=== PATIENT | male | born 1990 | race Asian ===

== ENCOUNTER 2017-04-29 14:00 | Emergency (ER) | payer MEDICAID ==
[~2017-04-29] VITALS: Ht 177.8 cm; Wt 79.4 kg
--- NOTE | 2017-04-29 14:08 | NUR ---
MSE DONE BY DR TOVAR AT BEDSIDE ROOM 02B.
[2017-04-29] MEDS ORDERED: AMOXICILLIN-CLAVUL 500-125MG TABLET ONE (14:21)
[2017-04-29] MEDS ORDERED: TDAP DIPH,PERTUSS,TET VAC/PF 0.5 ML DISP.SYRIN IM ONE (14:21)
[2017-04-29] MEDS ORDERED: IBUPROFEN 600 MG TABLET ONE (14:21)
[2017-04-29] MEDS: IBUPROFEN 600 MG TABLET PO ONE (14:30)
[2017-04-29] MEDS: AMOXICILLIN-CLAVUL 500-125MG TABLET PO ONE (14:30)
[2017-04-29] MEDS: TDAP DIPH,PERTUSS,TET VAC/PF 0.5 ML DISP.SYRIN IM ONE (14:31)
[2017-04-29 14:42] VITALS: BP 131/78
--- NOTE | 2017-04-29 14:43 | NUR ---
Patient discharged to home in stable conditon. Written and verbal after care instructions given. Patient verbalizes understanding of instructions.
== END 2017-04-29 14:45 | disposition home or self-care (01) ==
LOC: ER 14:01
DX: S71.152A Open bite, left thigh, initial encounter (principal); W54.0XXA Bitten by dog, initial encounter; Y93.89 Activity, other specified; Y92.89 Other specified places as the place of occurrence of the external cause; Y99.8 Other external cause status
CPT/HCPCS: 90715; A4217; A4663